=== PATIENT | female | born 1955 | race Caucasian/White ===

== ENCOUNTER 2016-11-04 08:20 | Emergency (ER) | payer OTHER ==
[2016-11-04 08:26] VITALS: BP 149/87; PULSE 78; RESP 18; TEMP 98.1; O2SAT 97
[2016-11-04] MEDS ORDERED: IBUPROFEN 600 MG TAB PO ONE (09:18)
--- NOTE | 2016-11-04 09:52 | EDPHY ---
H & P Stated Complaint: bucked off horse yesterday/bilat heel pain/denies other inj Time Seen by Provider: 11/04/16 08:45 HPI/ROS: Chief complaint: Foot and hip pain status post fall from horse HPI: 61-year-old woman [place]. Patient had pain in her left heel and left hip since that time. She is not able to ambulate secondary to pain. Patient also does reporting that she had temporary dental implants knocked out when she fell. She had no loss of consciousness. Denies any other injuries. She does state also that she sustained a laceration to her right hand 2 days ago using a box maker. She repaired this herself. Denies any redness or discharge from the wound. ROS: 10 point Review of Systems is negative except as noted in the HPI. Past medical history: None Medications: None Allergies: None Physical exam: Gen: Awake, Alert, Airway Intact HEENT: Head: Atraumatic Eyes: PERRLA, EOMI Nose: No epistaxis Mouth: Normal dentition, Airway patent Face: No deformity Neck: non-tender, no stepoff, Full ROM without pain Chest: non-tender, lungs CTA Heart: normal heart tones Abd: soft, non-tender, atraumatic Pelvis: non-tender, stable to AP and Lateral compression Back: atraumatic, no midline tenderness Ext: Right hand: She has a well-healing 2 cm laceration over her right thenar eminence. This is dressed with butterfly bandages. There is no erythema. There is good wound edge approximation. She has full range of motion of her digits without difficulty. No Mild left hip tenderness without decreased range of motion, left calcaneal tenderness. Ankle bilaterally are nontender. Mild right calcaneal tenderness. No edema. No erythema. Skin: no rash Neuro: CN II-XII intact, Strength 5/5 in all extremities, sensation intact in all extremities - Personal History Current Tetanus/Diphtheria Vaccine: Yes - Medical/Surgical History Hx Asthma: No Hx Chronic Respiratory Disease: No Hx Diabetes: No Hx Cardiac Disease: No Hx Renal Disease: No Hx Cirrhosis: No Hx Alcoholism: No Hx HIV/AIDS: No Hx Splenectomy or Spleen Trauma: No Other PMH: denies - Social History Smoking Status: Never smoked Constitutional: Initial Vital Signs Temperature (C) 36.7 C 03/10/17 08:23 Heart Rate 78 11/04/16 08:23 Respiratory Rate 18 11/04/16 08:23 Blood Pressure 149/87 H 11/04/16 08:23 O2 Sat (%) 97 11/04/16 08:23 O2 Delivery Mode Room Air Allergies/Adverse Reactions: No Known Allergies Allergy (Verified 11/04/16 08:22) Home Medications: Medication Instructions Recorded Zolpidem Tartrate [Ambien 10 mg] 5 mg PO HS PRN 12/03/12 Hydrocodon-Acetaminophen 5-325 11/04/16 Medical Decision Making - Diagnostics Imaging: Left hip x-ray: Negative per my interpretation Left foot x-ray: Negative per my interpretation Right foot x-ray: Negative per my interpretation ED Course/Re-evaluation: 61-year-old woman with a left foot pain and hip pain status post fall from horse. X-rays here unremarkable. Patient also has a laceration at her right thenar eminence which is well healing and not infected. Plan will be to discharge with crutches, follow up with primary care physician in 3-4 days if symptoms are not improving. - Data Points Medications Given: Discontinued Medications Ibuprofen (Motrin) 600 mg PO EDNOW ONE Stop: 11/04/16 09:19 Last Admin: 11/04/16 09:20 Dose: 600 mg Departure - Departure Disposition: Home, Routine, Self-Care Clinical Impression: Foot pain, bilateral, Hip pain, Laceration Condition: Good Instructions: Foot Contusion (ED), Crutch Instructions (ED), Laceration Without Closure (ED) Additional Instructions: Follow up with your primary care physician, Dr. Alexander in [place], for further evaluation in 3-4 days if symptoms are not improving. You may take ibuprofen and acetaminophen as needed for pain. You may use crutches to assist and walking around. Return emergency depart for increasing pain, fevers, chills, numbness, weakness , or any other concerns.
== END 2016-11-04 10:41 | disposition home or self-care (01) ==
DX: S99.922A Unspecified injury of left foot, initial encounter (principal); S99.921A Unspecified injury of right foot, initial encounter; S79.912A Unspecified injury of left hip, initial encounter; S61.411A Laceration without foreign body of right hand, initial encounter; V80.010A Animal-rider injured by fall from or being thrown from horse in noncollision accident, initial encounter; Y92.410 Unspecified street and highway as the place of occurrence of the external cause; Y99.8 Other external cause status; Y93.52 Activity, horseback riding

== ENCOUNTER → 2019-01-25 | Outpatient (CLI) | payer OTHER | LOC: FIMAGING 13:26 ==